=== PATIENT | male | born 1935 | race Caucasian/White ===

== ENCOUNTER 2017-09-27 11:19 | Emergency (ER) | payer MEDICARE ==
[~2017-09-27 11:19] MED LIST: Iopamidol 370 76% 100 ML VIAL ONE
[2017-09-27 12:07] LABS: Band 2 % (5-11); Eosinophils 1 % (0-10); Hemoglobin 14.4 g/dL (14.0-18.0); Lymphocytes 17 % (21-51); MDiff Complete? YES; Mean Corpuscular HGB CONC 32.3 g/dL (32.0-36.0); Mean Corpuscular Hemoglobin 29.7 pg (27.0-31.0); Mean Platelet Volume 8.7 fL (7.4-10.4); Monocytes 11 % (0-10); Neutrophil 67 % (42-75); PLT Morphology Comment Appears Adequate; Platelet Count 231 thou/uL (130-400); RBC Distribution Width 13.1 % (11.5-14.5); Reactive Lymphocytes 2 % (0-10); Red Blood Cell (RBC) Count 4.83 mill/uL (4.70-6.10); White Blood Cell (WBC) Count 8.8 thou/uL (4.8-10.8)
[2017-09-27 12:09] LABS: ALT (SGPT) Less than 6 U/L (8-55); AST (SGOT) 14 U/L (5-34); Albumin 3.7 g/dL (3.4-4.8); Alkaline Phosphatase 47 U/L (40-150); Anion Gap 13 mmol/L (10-20); BUN (Urea Nitrogen) 20 mg/dL (8.4-25.7); Bilirubin, Total 0.5 mg/dL (0.2-1.2); Calc. Creatinine Clearance 0 mL/min (70-130); Carbon Dioxide 25 mmol/L (23-31); Chloride 108 mmol/L (98-107); Estimated GFR-MDRD 72; Globulin 2.6 g/dL (2.4-3.5); Glucose 129 mg/dL (83-110); Potassium 4.4 mmol/L (3.5-5.1); Protein, Total 6.3 g/dL (5.8-8.1); Sodium 142 mmol/L (136-145)
[2017-09-27 12:10] LABS: CKMB 1.3 ng/mL (0-6.6); Troponin I Less than 0.010 ng/mL (< 0.028)
[2017-09-27 13:32] LABS: Bilirubin Negative (Negative); Blood, Urine Negative (Negative); Clarity Clear (Clear); Glucose, Urine (Dipstick) Negative (Negative); Leukocyte Negative (Negative); Nitrite Negative (Negative); Protein, Urine (Dipstick) Negative (Neg-Trace); Specific Gravity, Urine 1.015 (1.005-1.030); Urobilinogen 0.2 mg/dL (0.2-1.0)
--- NOTE | 2017-09-27 15:41 | RAD ---
CHEST ONE VIEW: 09/27/17 HISTORY: 82-year-old male with history of cough and generalized weakness, Parkinson's disease. COMPARISON: 01/28/17. FINDINGS: Mild cardiomegaly. Stable increased linear and interstitial markings bilaterally in the bases. No con fluent pneumonia, overt edema or pleural effusion. IMPRESSION: Stable chest. No evidence for pneumonia. POS: [facility]
--- NOTE | 2017-09-27 16:47 | CT ---
CONTRAST ENHANCED CTA CHEST 09/27/17 HISTORY: Uncontrolled movement, generalized weakness, shortness of breath. Contrast enhanced CTA of the chest is performed. 2D and 3D reconstructed images are used to evaluate the chest. Motion artifact decreases the sensitivity for detection of pathology. Hypodense areas seen in the kid neys bilaterally concerning for possible cysts. There is a right parasternal subcutaneous density most compatible with a sebaceous cyst. Atherosclerotic calcification of the aorta is seen. Coronary artery calcifications seen. The lung parenchyma demonstrates some scarring in both lung bases. There also appears to be some area of scarring in the lingula. There appears to be some thickening of the distal esophagus. This may represent esophagitis or possib le distal esophageal circumscribed mass. Correlate with direct visualization. Evaluation of the pulmonary arteries demonstrate no evidence of filling defects to suggest pulmonary emboli. Unremarkable mediastinum. IMPRESSION: 1. No evidence of pulmonary emboli. 2. Possible distal esophageal thickening. Correlate with direct visualization to rule out malign luis versus esophagitis. 3. No evidence of pulmonary emboli seen. POS: [facility]
== END 2017-09-27 14:12 | disposition home or self-care (01) ==
LOC: SCSER 11:19
DX: R53.83 Other fatigue (principal)
CPT/HCPCS: 71045; 71275; 80053; 81003; 82553; 84145; 84484; 85025; 85379; 87804; 93005

== ENCOUNTER 2017-12-19 16:20 | Inpatient (IN) | payer MEDICARE ==
[2017-12-19 16:49] LABS: #Basophils 0.1 thou/uL (0.0-0.2); #Eosinphils 0.2 thou/uL (0.0-0.7); #Lymphocytes 1.7 thou/uL (1.20-3.40); #Monocytes 0.8 thou/uL (0.11-0.59); #Neutrophils 5.5 thou/uL (1.40-6.50); %Lymphocytes 20.7 % (21.0-51.0); %Monocytes 9.4 % (0.0-10.0); %Neutrophils 66.9 % (42.0-75.0); Hemoglobin 15.9 g/dL (14.0-18.0); Mean Corpuscular HGB CONC 33.2 g/dL (32.0-36.0); Mean Corpuscular Volume 93.5 fl (80.0-94.0); Mean Platelet Volume 8.6 fL (7.4-10.4); Platelet Count 218 thou/uL (130-400); RBC Distribution Width 13.7 % (11.5-14.5); Red Blood Cell (RBC) Count 5.12 mill/uL (4.70-6.10); White Blood Cell (WBC) Count 8.2 thou/uL (4.8-10.8)
[2017-12-19 16:57] LABS: PTT 26.2 SEC (22.9-36.1); Prothrombin Time 13.2 SEC (12.0-14.7)
--- NOTE | 2017-12-19 17:03 | RAD ---
PORTABLE CHEST ONE VIEW: 12/19/17 at 4:59 p.m. HISTORY: Dyspnea. FINDINGS/IMPRESSION: Comparison is made with the exam of 09/27/17. The heart size is enlarged. The aorta is tortuous. No lobar consolidation, pneumothorax or pleural ef fusions are seen. There is a questionable nodular density in the left lower lung. Dedicated PA and la teral views of chest should be performed. CODE T CODE L POS: [facility]
[2017-12-19 17:07] LABS: ALT (SGPT) Less than 6 U/L (8-55); AST (SGOT) 13 U/L (5-34); Alkaline Phosphatase 51 U/L (40-150); Anion Gap 14 mmol/L (10-20); BUN (Urea Nitrogen) 22 mg/dL (8.4-25.7); Bilirubin, Total 0.4 mg/dL (0.2-1.2); CK (CPK) 45 U/L (30-200); Calc. Creatinine Clearance 0 mL/min (70-130); Calcium 9.3 mg/dL (7.8-10.44); Carbon Dioxide 24 mmol/L (23-31); Chloride 108 mmol/L (98-107); Estimated GFR-MDRD 69; Globulin 2.8 g/dL (2.4-3.5); Glucose 136 mg/dL (83-110); Lipase 21 U/L (8-78); Potassium 4.4 mmol/L (3.5-5.1); Protein, Total 6.8 g/dL (5.8-8.1); Sodium 142 mmol/L (136-145); Troponin I Less than 0.010 ng/mL (< 0.028)
[2017-12-19 19:59] VITALS: BMI 28.3
[2017-12-19 20:43] LABS: Troponin I Less than 0.010 ng/mL (< 0.028)
[2017-12-19] MEDS ORDERED: Acetaminophen 325 MG TAB PO PRN (21:14)
[2017-12-19 23:02] LABS: Troponin I Less than 0.010 ng/mL (< 0.028)
--- NOTE | 2017-12-20 04:17 | HP ---
CHIEF COMPLAINT: Generalized weakness. HISTORY OF PRESENT ILLNESS: The patient is a very pleasant 82-year-old male with a history of [place] son's and TIA who presents to the hospital with complaints of generalized weakness. The patient's wi fe is at the bedside states that the patient has been having generalized weakness for the past month or so; however, for the past 3 days, his weakness has gotten worse, especially today. The patient st ates that normally he is able to transfer from the bed to the chair; however, he has noticed shortnes s of breath which normally he does not get short of breath. The patient states that he has to wait a minute to catch his breath. The patient also states that upon transfer, he has been feeling little weak from his baseline. The patient's is at the bedside states that his appetite is really good and no recent change in medications. The patient denies any chest pain or palpitations, any nausea, vomiting, or diarrhea. PAST MEDICAL HISTORY: History of Parkinson's and TIA. SOCIAL HISTORY: The patient denies any drinking, drug use, or smoking history. PAST SURGICAL HISTORY: Tonsillectomy and a hernia repair. FAMILY HISTORY: Mother of leukemia. Father had diabetes. ALLERGIES: He has no known allergies. MEDICATIONS: His medications are as the following: He takes aspirin 81 mg daily, he takes Plavix 75 mg daily, he takes levothyroxine 112 mcg daily, Benicar 5 mg daily, carbidopa/levodopa 25/250 mg zakia ly, Colace 100 mg daily, Sinemet 25 mg 4 times a day. PHYSICAL EXAMINATION: VITAL SIGNS: Blood pressure of 164/79, pulse of 74, respirations 22, temperature is 98.7, 97% on carlos manuel m air. GENERAL: He is awake, alert, and oriented x3, does not appear in any distress, lying flat in bed. HEENT: Normocephalic, atraumatic. NECK: No lymphadenopathy noted. CARDIOVASCULAR: S1, S2 present. The patient's heart rate I believe is he has frequent PVCs. It see ms like every second beat. RESPIRATORY: Lungs are clear to auscultation, rhonchi, wheezes noted. EXTREMITIES: Lower extremity, no edema. Pedal pulses are present. NEUROLOGIC: He has good strength 5/5 in the upper extremities, 5/5 in lower extremities; however, ge neralized he is a little weaker than which is his baseline. SKIN: No lesions noted. PSYCHIATRIC: His mood and affect is little flat. REVIEW OF SYSTEMS: All review of systems negative except for the ones mentioned above in the HPI. LABORATORY DATA: Laboratory results are as the following: WBCs of 8.2, hemoglobin of 15.9, hematocr it of 47.9, platelets of 218. Chemistry: Sodium of 142, potassium of 4.4, BUN of 22, creatinine of 1.03. His troponins x2 were negative. BNP is 226.5. TSH is 3.6. EKG per my interpretation, I do s ee few P waves in his [place] beats, he does have a baseline due to his Parkinson's, it looks like he is in atrial fibrillation, but it seems that he does have some P waves with some frequent PVCs. Ches t x-ray: He did have a chest x-ray which indicated enlargement of the heart size and questionable no dular densities in the left lower lung. ASSESSMENT AND PLAN: The patient is a very pleasant 82-year-old male who presents to the hospital [facility] generalized weakness. 1. Generalized weakness secondary to either cardiac related versus worsening Parkinson's. The patie nt states that at baseline, he has been feeling very weak all over. The patient's stated that camilla ballesteros has seen Cardiology about a month ago and had echocardiogram at Dr. Schneider's office We will not re peat the echocardiogram. We will consult Cardiology. Currently, I am not sure if his EKG indicates atrial fibrillation since he does have some P waves on some of his [place] beats and does have some pr emature ventricular contractions. We will wait for cardiology's evaluation. We will also check a vi tamin D and a vitamin B12 level. His thyroid level has been okay. His troponins x2 were negative. 2. History of transient ischemic attack. The patient is on aspirin and Plavix. We will continue. He is also on a statin, we will also continue that. 3. History of Parkinson's. We will continue his home medication. 4. We will also get physical therapy and occupational therapy to evaluate the patient. 5. Deep venous thrombosis prophylaxis. We will put the patient on subcu heparin.
[2017-12-20 04:59] LABS: #Eosinphils 0.3 thou/uL (0.0-0.7); #Lymphocytes 1.4 thou/uL (1.20-3.40); #Monocytes 0.8 thou/uL (0.11-0.59); #Neutrophils 4.8 thou/uL (1.40-6.50); %Basophils 0.5 % (0.0-1.0); %Eosinophils 3.7 % (0.0-10.0); %Lymphocytes 19.1 % (21.0-51.0); %Monocytes 11.1 % (0.0-10.0); %Neutrophils 65.5 % (42.0-75.0); Hemoglobin 14.3 g/dL (14.0-18.0); Mean Corpuscular HGB CONC 32.6 g/dL (32.0-36.0); Mean Corpuscular Hemoglobin 30.9 pg (27.0-31.0); Mean Corpuscular Volume 94.8 fl (80.0-94.0); Mean Platelet Volume 7.7 fL (7.4-10.4); Platelet Count 204 thou/uL (130-400); RBC Distribution Width 13.6 % (11.5-14.5); Red Blood Cell (RBC) Count 4.63 mill/uL (4.70-6.10); White Blood Cell (WBC) Count 7.3 thou/uL (4.8-10.8)
[2017-12-20 05:18] LABS: Anion Gap 11 mmol/L (10-20); BUN (Urea Nitrogen) 18 mg/dL (8.4-25.7); Calc. Creatinine Clearance 91 mL/min (70-130); Calcium 8.6 mg/dL (7.8-10.44); Carbon Dioxide 25 mmol/L (23-31); Chloride 107 mmol/L (98-107); Estimated GFR-MDRD 87; Glucose 97 mg/dL (83-110); Sodium 139 mmol/L (136-145)
[2017-12-20] MEDS ORDERED: Mag-Al 1200 mg/1200 mg/30 ML UDCUP PO PRN (06:53)
[2017-12-20] MEDS ORDERED: Artificial Tears 18 DROP/0.9 ML EA EYE PRN (06:53)
[2017-12-20] MEDS ORDERED: Milk Of Magnesia 30 ML UDCUP PO PRN (06:53)
[2017-12-20] MEDS ORDERED: Ondansetron HCl/PF 4 MG/2 ML Vial IVP PRN (06:53)
[2017-12-20] MEDS ORDERED: Sodium Chloride 0.65% Nasal 44 ML BOT EA NARE PRN (06:53)
[2017-12-20] MEDS ORDERED: Temazepam 15 MG CAP PO PRN (06:53)
[2017-12-20] MEDS ORDERED: Loratadine 10 MG TAB PO PRN (06:53)
[2017-12-20] MEDS ORDERED: Chloraseptic Spray 180 ml Bottle PO PRN (06:53)
[2017-12-20] MEDS ORDERED: hydrALAZINE 20 MG/ML VIAL SLOW IVP PRN (06:53)
[2017-12-20] MEDS ORDERED: Nitroglycerin 0.4 MG TAB (25 Tab Bottle) SL PRN (06:53)
[2017-12-20] MEDS ORDERED: HYDROcodone/Acetaminophen 5/325 mg Tablet PO PRN (06:53)
[2017-12-20] MEDS ORDERED: Eucerin (Mineral Oil/Petrolatum,White) 30 gm Jar TOP PRN (06:53)
[2017-12-20] MEDS ORDERED: Ondansetron ODT 4 MG TAB PO PRN (06:53)
[2017-12-20] MEDS ORDERED: Diabetic Tussin 200 MG/10 ML UDCUP PO PRN (06:53)
[2017-12-20] MEDS ORDERED: Loperamide HCl 2 MG CAP PO PRN (06:53)
[2017-12-20] MEDS ORDERED: CYANOCOBALAMIN PO SCH (07:00)
[2017-12-20] MEDS ORDERED: Non-Formulary Item 1 EACH (Cholecalciferol (Vitamin D3) [Vitamin D3] 5,000 UNIT) PO SCH (09:00)
[2017-12-20] MEDS ORDERED: Prevnar 13-Val Conj/PF 0.5 ML SYRINGE IM ONE (09:00)
[2017-12-20] MEDS: Aspirin 81 mg Enteric Coated Tablet PO SCH (09:00)
[2017-12-20] MEDS ORDERED: Docusate 100 MG CAP PO SCH (09:00)
[2017-12-20] MEDS ORDERED: Aspirin 81 mg Enteric Coated Tablet PO SCH (09:00)
[2017-12-20] MEDS ORDERED: Enoxaparin Sodium 40 MG/0.4 ML SYRINGE SC SCH (09:00)
[2017-12-20] MEDS ORDERED: Non-Formulary Item 1 EACH (Ezetimibe/Simvastatin [Ezetimibe-Simvastatin 10-40 Mg] 1 TAB) PO SCH (09:00)
[2017-12-20] MEDS: Docusate 100 MG CAP PO SCH ×2 (09:00→20:47)
--- NOTE | 2017-12-20 09:10 | PDOC.PN ---
- Subjective Encounter Start Date: 12/20/17 Encounter Start Time: 07:00 -: old records requested/rev pt feels weak, no chest pain, no dizziness, no dyspnea Patient seen and examined for weakness. No new complaints. No overnight events - Objective Resuscitation Status: Resuscitation Status FULL:Full Resuscitation MAR Reviewed: Yes Vital Signs & Weight: Vital Signs (12 hours) Temp Pulse Resp BP Pulse Ox 12/20/17 07:10 97.9 F 61 16 136/80 97 12/20/17 03:00 97.7 F 60 24 H 160/80 H 96 12/19/17 23:18 98.2 F 58 L 24 H 181/86 H 99 Weight Weight 209 lb Result Diagrams: 12/20/17 04:36 12/20/17 04:36 Radiology Reviewed by me: Yes EKG Reviewed by me: Yes (pac, pvc) Phys Exam - Physical Examination Constitutional: NAD HEENT: PERRLA, moist MMs, sclera anicteric Neck: no JVD, supple Respiratory: no wheezing, no rales, no rhonchi Cardiovascular: no significant murmur, irregular Gastrointestinal: soft, non-tender, no distention, positive bowel sounds Musculoskeletal: no edema, pulses present Neurological: non-focal, normal sensation, moves all 4 limbs Lymphatic: no nodes Psychiatric: normal affect, A&O x 3 Skin: no rash, normal turgor Dx/Plan (1) Frequent PVCs Code(s): I49.3 - VENTRICULAR PREMATURE DEPOLARIZATION Status: Acute (2) Weakness generalized Code(s): R53.1 - WEAKNESS Status: Acute (3) Hypertension Code(s): I10 - ESSENTIAL (PRIMARY) HYPERTENSION Status: Chronic (4) Hypothyroidism Code(s): E03.9 - HYPOTHYROIDISM, UNSPECIFIED Status: Chronic (5) Parkinson disease Code(s): G20 - PARKINSON'S DISEASE Status: Chronic - Plan cont current plan of care, plan discussed w/ family, PT/OT * tele does not show and ekg does not support afib, seems like he has many pac, pvc * echo will be repeated again, he had recently echo at dr salmeron's office * may need stress test to rule out silent ischemia, but will defer to cardiology * discussed with pt and * home medication reconciled * medication reviewed as below * symptomatic treatment. Review of Systems - Review of Systems Constitutional: weakness. negative: fever, chills, sweats, malaise, other Eyes: negative: Pain, Vision Change, Conjunctivae Inflammation, Eyelid Inflammation, Redness, Other ENT: negative: Ear Pain, Ear Discharge, Nose Pain, Nose Discharge, Nose Congestion, Mouth Pain, Mouth Swelling, Throat Pain, Throat Swelling, Other Respiratory: negative: Cough, Dry, Shortness of Breath, Hemoptysis, SOB with Excertion, Pleuritic Pain, Sputum, Wheezing Cardiovascular: negative: chest pain, palpitations, orthopnea, paroxysmal nocturnal dyspnea, edema, light headedness, other Gastrointestinal: negative: Nausea, Vomiting, Abdominal Pain, Diarrhea, Constipation, Melena, Hematochezia, Other Genitourinary: negative: Dysuria, Frequency, Incontinence, Hematuria, Retention , Other Musculoskeletal: negative: Neck Pain, Shoulder Pain, Arm Pain, Back Pain, Hand Pain, Leg Pain, Foot Pain, Other Skin: negative: Rash, Lesions, Christian, Bruising, Other - Medications/Allergies Allergies/Adverse Reactions: Allergies Allergy/AdvReac Type Severity Reaction Status Date / Time No Known Allergies Allergy Verified 12/19/17 22:32 Medications: Current Medications Acetaminophen (Tylenol) 650 mg PO Q4H PRN PRN Reason: Headache/Fever or Pain Hydrocodone Bitart/Acetaminophen ([place] 5/325) 1 tab PO Q4H PRN PRN Reason: Moderate Pain (4-6) Al Hydroxide/Mg Hydroxide (Maalox) 15 ml PO Q4H PRN PRN Reason: Heartburn or Indigestion Artificial Tears (Tears Naturale) 0 drop EA EYE PRN PRN PRN Reason: Dry Eyes Aspirin (Aspirin Chewable) 81 mg PO DAILY [facility] Aspirin (Ecotrin) 81 mg PO DAILY [facility] Carbidopa/Levodopa (Sinemet 25-250) 2 tab PO QID [facility] Carbidopa/Levodopa (Sinemet Cr 50/200) 1 tab PO HS [facility] Cholecalciferol (Vitamin D3) 5,000 units PO DAILY [facility] Clopidogrel Bisulfate (Plavix) 75 mg PO DAILY [facility] Cyanocobalamin (Vitamin B-12) 1,000 mcg PO Q2D [facility] Docusate Sodium (Colace) 100 mg PO BID [facility] Docusate Sodium (Colace) 100 mg PO BID [facility] Ezetimibe (Zetia) 10 mg PO HS [facility] Enoxaparin Sodium (Lovenox) 40 mg SC 0900 [place] Entacapone (Comtan) 200 mg PO QID [place] Famotidine (Pepcid) 20 mg PO BID [place] Guaifenesin (Robitussin Sf) 200 mg PO Q4H PRN PRN Reason: Cough Hydralazine HCl (Apresoline) 10 mg SLOW IVP Q4H PRN PRN Reason: Systolic BP > 180 Levothyroxine Sodium (Synthroid) 112 mcg PO DAILY [place] Loperamide HCl (Imodium) 2 mg PO PRN PRN PRN Reason: Diarrhea/Loose Stools Loratadine (Claritin) 10 mg PO DAILYPRN PRN PRN Reason: Sinus Symptoms Magnesium Hydroxide (Milk Of Magnesium) 30 ml PO DAILYPRN PRN PRN Reason: Constipation Mineral Oil/White Petrolatum (Eucerin Cream) 0 gm TOP BIDPRN PRN PRN Reason: Dry Skin Nitroglycerin (Nitrostat) 0.4 mg SL Q5MIN PRN PRN Reason: Chest Pain Ondansetron HCl (Zofran Odt) 4 mg PO Q6H PRN PRN Reason: Nausea/Vomiting Ondansetron HCl (Zofran) 4 mg IVP Q6H PRN PRN Reason: Nausea/Vomiting Phenol (Chloraseptic [place] 180 Ml Bot) 0 ml PO PRN PRN PRN Reason: Sore Throat Senna/Docusate Sodium (Senokot S) 2 tab PO HS PRN PRN Reason: Constipation Simvastatin (Zocor) 40 mg PO HS [place] Sodium Chloride ([place] Nasal [place] 0.65%) 0 ml EA NARE QIDPRN PRN PRN Reason: Nasal Congestion Sodium Chloride (Flush - Normal Saline) 10 ml IVF Q12HR [place] Sodium Chloride (Flush - Normal Saline) 10 ml IVF PRN PRN PRN Reason: Saline Flush Temazepam (Restoril) 15 mg PO HSPRN PRN PRN Reason: Insomnia
[2017-12-20] MEDS: Carbidopa/Levodopa 25-250 mg Tablet PO SCH ×4 (09:16→20:36)
[2017-12-20] MEDS: Entacapone 200 mg Tablet PO SCH ×4 (09:18→22:23)
[2017-12-20] MEDS: Levothyroxine Sodium 112 MCG TAB PO SCH (09:18)
[2017-12-20] MEDS: Clopidogrel Bisulfate 75 MG TAB PO SCH (09:22)
[2017-12-20] MEDS: Famotidine 20 MG TAB PO SCH ×2 (09:22→20:36)
[2017-12-20] MEDS: Cyanocobalamin (Vitamin B-12) 1,000 MCG TAB PO SCH (09:33)
--- NOTE | 2017-12-20 15:07 | CT ---
CT ARTERIOGRAM CHEST WITH IV CONTRAST AND 3D MIP IMAGING: HISTORY: Chest pain. Dyspnea. FINDINGS: Small filling defects are apparent within left upper lobe pulmonary arteries and left lower lobe pulm onary arteries with peripheral atelectasis at the left lung base. A single filling defect is present within a right upper lobe pulmonary artery. No pleural fluid, pneumothorax, or mediastinal hematoma . Skin lesions are evident at the anterior chest wall. There is calcification in the arterial struc tures. IMPRESSION: 1. Pulmonary emboli, bilateral. Overall low clot burden. 2. Atherosclerosis. Findings were called to Dr. Ku at 1456 hours. CODE CR POS: [facility]
--- NOTE | 2017-12-20 15:10 | CON ---
DATE OF CONSULTATION: 12/20/2017 HISTORY OF PRESENT ILLNESS: The patient is an 82-year-old gentleman who presents with dyspnea and weakness. The patient has a history of Parkinson's disease. He recently saw Dr. Rodríguez and underwent cardiac evaluation including echocardiogram, which was apparently unremarkable. The patient has noticed increasing dyspnea with minimal exertion. He denies having any chest discomfort. The patient denies have any PND or orthopnea. The patient was noted to be in irregular heart rhythm and admitted for further evaluation. PAST MEDICAL HISTORY: Parkinson's disease. History of a TIA PAST SURGICAL HISTORY: Tonsillectomy, hernia surgery. SOCIAL HISTORY: Nonsmoker. FAMILY HISTORY: No strong family heart disease. MEDICATIONS: Aspirin 81 daily, Plavix 75 daily, Colace 100 daily, Sinemet 25 mg 4 tablets daily, Benicar 5 daily, Synthroid 112 mcg daily. REVIEW OF SYSTEMS: Ten point system noticing for marked increasing weakness. ALLERGIES: No known drug allergies. PHYSICAL EXAMINATION: GENERAL: Obese gentleman in no acute distress. VITAL SIGNS: Blood pressure was 131/77. NECK: Showed no jugular venous distention. LUNGS: Clear to auscultation. HEART: Irregular rate and rhythm, normal S1, S2. ABDOMEN: Distended. EXTREMITIES: Showed trace edema. SKIN: Warm and dry. VASCULAR: Radial pulses are 2+. LABORATORY DATA: White blood cell count 7.3, hemoglobin 14.3, hematocrit 43.9, platelets are 204. Sodium 139, potassium 4.0, chloride 107, bicarbonate 25, BUN 18, creatinine is 0.84. Troponin was less than 0.01. BNP is 206. His EKG revealed normal sinus rhythm with frequent PACs and fusion complexes. IMPRESSION: 1. Dyspnea. 2. Premature atrial contractions. 3. Parkinson disease. 4. Dyslipidemia. 5. History of transient ischemic attack. 6. Obesity. PLAN: This gentleman presents with increasing dyspnea. The patient had a recent echocardiogram which was unremarkable.I will obtain a D-dimer and possible CT scan to make sure there is no evidence of pulmonary embolus. We will also obtain a stress test to make sure there is no evidence and that his dyspnea secondary to silent ischemia. We will follow this patient with you through his hospitalization. MINNA
[2017-12-20] MEDS ORDERED: Enoxaparin Sodium 100 MG/ML SYRINGE SC SCH ×2 (15:30→21:00)
[2017-12-20] MEDS ORDERED: ISOVUE-370 76%-LOCM 1 ML ONE (16:39)
--- NOTE | 2017-12-20 17:21 | ULT ---
ULTRASOUND BILATERAL LOWER EXTREMITY VENOUS DOPPLER 12/20/17 HISTORY: PE. Elevated D-dimer. COMPARISON: None. TECHNIQUE: Real time franks scale, color doppler with spectral analysis bilateral lower extremity venous system wa s performed. The common femoral, femoral, proximal portion of the greater saphenous, deep femoral vei ns as well as popliteal and posterior tibial veins are interrogated. Normal flow, augmentation and compression. IMPRESSION: No deep venous thrombosis. POS: [facility]
[2017-12-20] MEDS: Senokot S 8.6-50 MG TAB PO PRN (20:35)
[2017-12-20] MEDS: Ezetimibe 10 MG TAB PO SCH (20:35)
[2017-12-20] MEDS: Carbidopa/Levodopa CR 50-200 mg Tablet PO SCH (20:36)
[2017-12-20] MEDS: Simvastatin 40 MG TAB PO SCH (20:36)
[2017-12-21 05:11] LABS: #Eosinphils 0.2 thou/uL (0.0-0.7); #Lymphocytes 1.4 thou/uL (1.20-3.40); #Monocytes 0.9 thou/uL (0.11-0.59); #Neutrophils 4.5 thou/uL (1.40-6.50); %Basophils 0.4 % (0.0-1.0); %Eosinophils 2.8 % (0.0-10.0); %Neutrophils 63.9 % (42.0-75.0); Mean Corpuscular HGB CONC 33.5 g/dL (32.0-36.0); Mean Corpuscular Hemoglobin 32.1 pg (27.0-31.0); Mean Corpuscular Volume 95.8 fl (80.0-94.0); Mean Platelet Volume 7.6 fL (7.4-10.4); Platelet Count 197 thou/uL (130-400); RBC Distribution Width 13.6 % (11.5-14.5); Red Blood Cell (RBC) Count 4.36 mill/uL (4.70-6.10); White Blood Cell (WBC) Count 7.1 thou/uL (4.8-10.8)
[2017-12-21 05:17] LABS: INR-International Normal Ratio 1.1; Prothrombin Time 13.9 SEC (12.0-14.7)
[2017-12-21 05:18] LABS: D-Dimer Test 0.8 *mcg/mL (0.27-0.43)
[2017-12-21 05:28] LABS: Anion Gap 11 mmol/L (10-20); BUN (Urea Nitrogen) 21 mg/dL (8.4-25.7); Calc. Creatinine Clearance 71 mL/min (70-130); Calcium 8.8 mg/dL (7.8-10.44); Carbon Dioxide 26 mmol/L (23-31); Chloride 106 mmol/L (98-107); Estimated GFR-MDRD 66; Glucose 95 mg/dL (83-110); Potassium 4.2 mmol/L (3.5-5.1); Sodium 139 mmol/L (136-145)
--- NOTE | 2017-12-21 08:17 | PDOC.PN ---
- Subjective Encounter Start Date: 12/21/17 Encounter Start Time: 06:30 pt is doing well, has less dyspnea, no bleeding from any site, no chest pain, no dizziness Patient seen and examined for PE. No new complaints. No overnight events - Objective Resuscitation Status: Resuscitation Status FULL:Full Resuscitation MAR Reviewed: Yes Vital Signs & Weight: Vital Signs (12 hours) Temp Pulse Resp BP Pulse Ox 12/21/17 03:05 97.7 F 62 20 125/69 95 12/20/17 23:25 98.2 F 53 L 20 137/74 95 Weight Weight 209 lb I&O: 12/20/17 12/21/17 12/22/17 06:59 06:59 06:59 Output Total 150 Balance -150 Result Diagrams: 12/21/17 04:50 12/21/17 04:50 Radiology Reviewed by me: Yes (CTA-bl PE, US leg- No DVT) EKG Reviewed by me: Yes (PVCs) Phys Exam - Physical Examination Constitutional: NAD HEENT: PERRLA, moist MMs, sclera anicteric Neck: no JVD, supple Respiratory: no wheezing, no rales, no rhonchi Cardiovascular: RRR, no significant murmur, no rub Gastrointestinal: soft, non-tender, no distention, positive bowel sounds Musculoskeletal: no edema, pulses present Neurological: non-focal, normal sensation, moves all 4 limbs Psychiatric: normal affect, A&O x 3 Skin: no rash, normal turgor Dx/Plan (1) Pulmonary embolism, bilateral Code(s): I26.99 - OTHER PULMONARY EMBOLISM WITHOUT ACUTE COR PULMONALE Status : Acute (2) Frequent PVCs Code(s): I49.3 - VENTRICULAR PREMATURE DEPOLARIZATION Status: Acute (3) Weakness generalized Code(s): R53.1 - WEAKNESS Status: Acute (4) Hypertension Code(s): I10 - ESSENTIAL (PRIMARY) HYPERTENSION Status: Chronic (5) Hypothyroidism Code(s): E03.9 - HYPOTHYROIDISM, UNSPECIFIED Status: Chronic (6) Parkinson disease Code(s): G20 - PARKINSON'S DISEASE Status: Chronic - Plan cont current plan of care, PT/OT * continue lovenox for now * on discharge elliquis vs xarelto vs warfarin * today echo * start PT * medication reviewed as below * symptomatic treatment. Review of Systems - Review of Systems Eyes: negative: Pain, Vision Change, Conjunctivae Inflammation, Eyelid Inflammation, Redness, Other ENT: negative: Ear Pain, Ear Discharge, Nose Pain, Nose Discharge, Nose Congestion, Mouth Pain, Mouth Swelling, Throat Pain, Throat Swelling, Other Respiratory: negative: Cough, Dry, Shortness of Breath, Hemoptysis, SOB with Excertion, Pleuritic Pain, Sputum, Wheezing Cardiovascular: negative: chest pain, palpitations, orthopnea, paroxysmal nocturnal dyspnea, edema, light headedness, other Gastrointestinal: negative: Nausea, Vomiting, Abdominal Pain, Diarrhea, Constipation, Melena, Hematochezia, Other Genitourinary: negative: Dysuria, Frequency, Incontinence, Hematuria, Retention , Other Musculoskeletal: negative: Neck Pain, Shoulder Pain, Arm Pain, Back Pain, Hand Pain, Leg Pain, Foot Pain, Other Skin: negative: Rash, Lesions, Christian, Bruising, Other - Medications/Allergies Allergies/Adverse Reactions: Allergies Allergy/AdvReac Type Severity Reaction Status Date / Time No Known Allergies Allergy Verified 12/19/17 22:32 Medications: Current Medications Acetaminophen (Tylenol) 650 mg PO Q4H PRN PRN Reason: Headache/Fever or Pain Hydrocodone Bitart/Acetaminophen ([place] 5/325) 1 tab PO Q4H PRN PRN Reason: Moderate Pain (4-6) Al Hydroxide/Mg Hydroxide (Maalox) 15 ml PO Q4H PRN PRN Reason: Heartburn or Indigestion Artificial Tears (Tears Naturale) 0 drop EA EYE PRN PRN PRN Reason: Dry Eyes Aspirin (Ecotrin) 81 mg PO DAILY [facility] Last Admin: 12/20/17 09:00 Dose: Not Given Carbidopa/Levodopa (Sinemet 25-250) 2 tab PO QID [facility] Last Admin: 12/20/17 20:36 Dose: 2 tab Carbidopa/Levodopa (Sinemet Cr 50/200) 1 tab PO HS [facility] Last Admin: 12/20/17 20:36 Dose: 1 tab Cholecalciferol (Vitamin D3) 5,000 units PO DAILY [facility] Last Admin: 12/20/17 09:16 Dose: 5,000 units Clopidogrel Bisulfate (Plavix) 75 mg PO DAILY [facility] Last Admin: 12/20/17 09:22 Dose: 75 mg Cyanocobalamin (Vitamin B-12) 1,000 mcg PO Q2D [facility] Last Admin: 12/20/17 09:33 Dose: 1,000 mcg Docusate Sodium (Colace) 100 mg PO BID [facility] Last Admin: 12/20/17 20:47 Dose: Not Given Ezetimibe (Zetia) 10 mg PO HS [facility] Last Admin: 12/20/17 20:35 Dose: 10 mg Enoxaparin Sodium (Lovenox) 90 mg SC 09,2099 [facility] Entacapone (Comtan) 200 mg PO QID [facility] Last Admin: 12/20/17 22:23 Dose: 200 mg Famotidine (Pepcid) 20 mg PO BID [facility] Last Admin: 12/20/17 20:36 Dose: 20 mg Guaifenesin (Robitussin Sf) 200 mg PO Q4H PRN PRN Reason: Cough Hydralazine HCl (Apresoline) 10 mg SLOW IVP Q4H PRN PRN Reason: Systolic BP > 180 Levothyroxine Sodium (Synthroid) 112 mcg PO DAILY [facility] Last Admin: 12/20/17 09:18 Dose: 112 mcg Loperamide HCl (Imodium) 2 mg PO PRN PRN PRN Reason: Diarrhea/Loose Stools Loratadine (Claritin) 10 mg PO DAILYPRN PRN PRN Reason: Sinus Symptoms Magnesium Hydroxide (Milk Of Magnesium) 30 ml PO DAILYPRN PRN PRN Reason: Constipation Mineral Oil/White Petrolatum (Eucerin Cream) 0 gm TOP BIDPRN PRN PRN Reason: Dry Skin Nitroglycerin (Nitrostat) 0.4 mg SL Q5MIN PRN PRN Reason: Chest Pain Ondansetron HCl (Zofran Odt) 4 mg PO Q6H PRN PRN Reason: Nausea/Vomiting Ondansetron HCl (Zofran) 4 mg IVP Q6H PRN PRN Reason: Nausea/Vomiting Phenol (Chloraseptic [place] 180 Ml Bot) 0 ml PO PRN PRN PRN Reason: Sore Throat Senna/Docusate Sodium (Senokot S) 2 tab PO HS PRN PRN Reason: Constipation Last Admin: 12/20/17 20:35 Dose: 2 tab Simvastatin (Zocor) 40 mg PO [facility] Last Admin: 12/20/17 20:36 Dose: 40 mg Sodium Chloride ([place] Nasal [place] 0.65%) 0 ml EA NARE QIDPRN PRN PRN Reason: Nasal Congestion Sodium Chloride (Flush - Normal Saline) 10 ml IVF Q12HR [place] Last Admin: 12/20/17 20:37 Dose: 10 ml Sodium Chloride (Flush - Normal Saline) 10 ml IVF PRN PRN PRN Reason: Saline Flush Temazepam (Restoril) 15 mg PO HSPRN PRN PRN Reason: Insomnia
[2017-12-21] MEDS: Enoxaparin Sodium 100 MG/ML SYRINGE SC SCH ×2 (09:03→20:11)
[2017-12-21] MEDS: Carbidopa/Levodopa 25-250 mg Tablet PO SCH ×4 (09:04→20:13)
[2017-12-21] MEDS: Docusate 100 MG CAP PO SCH ×2 (09:04→20:13)
[2017-12-21] MEDS: Levothyroxine Sodium 112 MCG TAB PO SCH (09:04)
[2017-12-21] MEDS: Entacapone 200 mg Tablet PO SCH ×4 (09:05→20:13)
[2017-12-21] MEDS: Clopidogrel Bisulfate 75 MG TAB PO SCH (09:05)
[2017-12-21] MEDS: Famotidine 20 MG TAB PO SCH ×2 (09:05→20:12)
[2017-12-21] MEDS: Aspirin 81 mg Enteric Coated Tablet PO SCH (09:05)
[2017-12-21] MEDS: Senokot S 8.6-50 MG TAB PO PRN (20:13)
[2017-12-21] MEDS: Ezetimibe 10 MG TAB PO SCH (20:13)
[2017-12-21] MEDS: Simvastatin 40 MG TAB PO SCH (20:13)
[2017-12-21] MEDS: Carbidopa/Levodopa CR 50-200 mg Tablet PO SCH (20:14)
[2017-12-22 05:07] LABS: INR-International Normal Ratio 1.1; Prothrombin Time 13.9 SEC (12.0-14.7)
[2017-12-22 05:10] LABS: Hemoglobin 13.7 g/dL (14.0-18.0); Platelet Count 203 thou/uL (130-400)
[2017-12-22] MEDS: Levothyroxine Sodium 112 MCG TAB PO SCH (08:14)
[2017-12-22] MEDS: Carbidopa/Levodopa 25-250 mg Tablet PO SCH ×4 (08:15→21:54)
[2017-12-22] MEDS: Famotidine 20 MG TAB PO SCH ×2 (08:16→21:54)
[2017-12-22] MEDS: Docusate 100 MG CAP PO SCH ×2 (08:16→21:55)
[2017-12-22] MEDS: Entacapone 200 mg Tablet PO SCH ×4 (08:16→21:54)
[2017-12-22] MEDS: Aspirin 81 mg Enteric Coated Tablet PO SCH (08:16)
[2017-12-22] MEDS: Enoxaparin Sodium 100 MG/ML SYRINGE SC SCH ×2 (08:16→21:55)
[2017-12-22] MEDS: Cyanocobalamin (Vitamin B-12) 1,000 MCG TAB PO SCH (10:09)
--- NOTE | 2017-12-22 10:15 | PDOC.PN ---
- Subjective Encounter Start Date: 12/22/17 Encounter Start Time: 07:00 Patient seen and examined for pulmonary embolism. No new complaints. No overnight events - Objective Resuscitation Status: Resuscitation Status FULL:Full Resuscitation MAR Reviewed: Yes Vital Signs & Weight: Vital Signs (12 hours) Temp Pulse Resp BP Pulse Ox 12/22/17 08:00 98.0 F 55 L 16 158/70 H 92 L 12/22/17 04:00 98.1 F 61 18 119/67 93 L 12/22/17 00:00 98.7 F 64 18 128/69 93 L Weight Weight 209 lb I&O: 12/21/17 12/22/17 12/23/17 06:59 06:59 06:59 Intake Total 1400 Output Total 150 150 Balance -150 1250 Result Diagrams: 12/22/17 04:28 12/22/17 04:28 EKG Reviewed by me: Yes (pvcs) Phys Exam - Physical Examination Constitutional: NAD HEENT: PERRLA, moist MMs, sclera anicteric Neck: no JVD, supple Respiratory: no wheezing, no rales, no rhonchi Cardiovascular: RRR, no significant murmur, no rub Gastrointestinal: soft, non-tender, no distention, positive bowel sounds Musculoskeletal: no edema, pulses present Neurological: non-focal, normal sensation, moves all 4 limbs Lymphatic: no nodes Psychiatric: normal affect, A&O x 3 Skin: no rash, normal turgor Dx/Plan (1) Frequent PVCs Code(s): I49.3 - VENTRICULAR PREMATURE DEPOLARIZATION Status: Acute (2) Weakness generalized Code(s): R53.1 - WEAKNESS Status: Acute (3) Hypertension Code(s): I10 - ESSENTIAL (PRIMARY) HYPERTENSION Status: Chronic (4) Hypothyroidism Code(s): E03.9 - HYPOTHYROIDISM, UNSPECIFIED Status: Chronic (5) Parkinson disease Code(s): G20 - PARKINSON'S DISEASE Status: Chronic - Plan cont current plan of care, plan discussed w/ family, PT/OT * pt's and pt agreed with marianna on discharge * medication reviewed as below * symptomatic treatment * discussed with * continue lovenox * continue PT * will plan for discharge tomorrow to home * pt and does not want snu or rehab. Review of Systems - Review of Systems Eyes: negative: Pain, Vision Change, Conjunctivae Inflammation, Eyelid Inflammation, Redness, Other ENT: negative: Ear Pain, Ear Discharge, Nose Pain, Nose Discharge, Nose Congestion, Mouth Pain, Mouth Swelling, Throat Pain, Throat Swelling, Other Respiratory: negative: Cough, Dry, Shortness of Breath, Hemoptysis, SOB with Excertion, Pleuritic Pain, Sputum, Wheezing Cardiovascular: negative: chest pain, palpitations, orthopnea, paroxysmal nocturnal dyspnea, edema, light headedness, other Gastrointestinal: negative: Nausea, Vomiting, Abdominal Pain, Diarrhea, Constipation, Melena, Hematochezia, Other Genitourinary: negative: Dysuria, Frequency, Incontinence, Hematuria, Retention , Other Musculoskeletal: negative: Neck Pain, Shoulder Pain, Arm Pain, Back Pain, Hand Pain, Leg Pain, Foot Pain, Other Skin: negative: Rash, Lesions, Christian, Bruising, Other - Medications/Allergies Allergies/Adverse Reactions: Allergies Allergy/AdvReac Type Severity Reaction Status Date / Time No Known Allergies Allergy Verified 12/19/17 22:32 Medications: Current Medications Acetaminophen (Tylenol) 650 mg PO Q4H PRN PRN Reason: Headache/Fever or Pain Hydrocodone Bitart/Acetaminophen ([place] 5/325) 1 tab PO Q4H PRN PRN Reason: Moderate Pain (4-6) Al Hydroxide/Mg Hydroxide (Maalox) 15 ml PO Q4H PRN PRN Reason: Heartburn or Indigestion Artificial Tears (Tears Naturale) 0 drop EA EYE PRN PRN PRN Reason: Dry Eyes Aspirin (Ecotrin) 81 mg PO DAILY [facility] Last Admin: 12/22/17 08:16 Dose: 81 mg Carbidopa/Levodopa (Sinemet 25-250) 2 tab PO QID [facility] Last Admin: 12/22/17 08:15 Dose: 2 tab Carbidopa/Levodopa (Sinemet Cr 50/200) 1 tab PO HS [facility] Last Admin: 12/21/17 20:14 Dose: 1 tab Cholecalciferol (Vitamin D3) 5,000 units PO DAILY [facility] Last Admin: 12/22/17 08:15 Dose: 5,000 units Cyanocobalamin (Vitamin B-12) 1,000 mcg PO Q2D [facility] Last Admin: 12/22/17 10:09 Dose: 1,000 mcg Docusate Sodium (Colace) 100 mg PO BID [facility] Last Admin: 12/22/17 08:16 Dose: 100 mg Ezetimibe (Zetia) 10 mg PO HS [facility] Last Admin: 12/21/17 20:13 Dose: 10 mg Enoxaparin Sodium (Lovenox) 90 mg SC 0900,2100 [facility] Last Admin: 12/22/17 08:16 Dose: 90 mg Entacapone (Comtan) 200 mg PO QID [facility] Last Admin: 12/22/17 08:16 Dose: 200 mg Famotidine (Pepcid) 20 mg PO BID [facility] Last Admin: 12/22/17 08:16 Dose: 20 mg Guaifenesin (Robitussin Sf) 200 mg PO Q4H PRN PRN Reason: Cough Hydralazine HCl (Apresoline) 10 mg SLOW IVP Q4H PRN PRN Reason: Systolic BP > 180 Levothyroxine Sodium (Synthroid) 112 mcg PO DAILY [facility] Last Admin: 12/22/17 08:14 Dose: 112 mcg Loperamide HCl (Imodium) 2 mg PO PRN PRN PRN Reason: Diarrhea/Loose Stools Loratadine (Claritin) 10 mg PO DAILYPRN PRN PRN Reason: Sinus Symptoms Magnesium Hydroxide (Milk Of Magnesium) 30 ml PO DAILYPRN PRN PRN Reason: Constipation Mineral Oil/White Petrolatum (Eucerin Cream) 0 gm TOP BIDPRN PRN PRN Reason: Dry Skin Nitroglycerin (Nitrostat) 0.4 mg SL Q5MIN PRN PRN Reason: Chest Pain Ondansetron HCl (Zofran Odt) 4 mg PO Q6H PRN PRN Reason: Nausea/Vomiting Ondansetron HCl (Zofran) 4 mg IVP Q6H PRN PRN Reason: Nausea/Vomiting Phenol (Chloraseptic [place] 180 Ml Bot) 0 ml PO PRN PRN PRN Reason: Sore Throat Senna/Docusate Sodium (Senokot S) 2 tab PO HS PRN PRN Reason: Constipation Last Admin: 12/21/17 20:13 Dose: 2 tab Simvastatin (Zocor) 40 mg PO HS [facility] Last Admin: 12/21/17 20:13 Dose: 40 mg Sodium Chloride ([place] Nasal [place] 0.65%) 0 ml EA NARE QIDPRN PRN PRN Reason: Nasal Congestion Sodium Chloride (Flush - Normal Saline) 10 ml IVF Q12HR [place] Last Admin: 12/22/17 10:12 Dose: 10 ml Sodium Chloride (Flush - Normal Saline) 10 ml IVF PRN PRN PRN Reason: Saline Flush Temazepam (Restoril) 15 mg PO HSPRN PRN PRN Reason: Insomnia
[2017-12-22] MEDS: Carbidopa/Levodopa CR 50-200 mg Tablet PO SCH (21:54)
[2017-12-22] MEDS: Ezetimibe 10 MG TAB PO SCH (21:54)
[2017-12-22] MEDS: Simvastatin 40 MG TAB PO SCH (21:55)
[2017-12-23 04:51] LABS: INR-International Normal Ratio 1.1; Prothrombin Time 14.3 SEC (12.0-14.7)
[2017-12-23 04:59] LABS: Hemoglobin 14.1 g/dL (14.0-18.0); Platelet Count 203 thou/uL (130-400)
[2017-12-23] MEDS: Senokot S 8.6-50 MG TAB PO PRN (05:37)
[2017-12-23] MEDS ORDERED: Apixaban 5 MG TAB PO SCH (09:00)
[2017-12-23] MEDS: Cyanocobalamin (Vitamin B-12) 1,000 MCG TAB PO SCH (09:22)
[2017-12-23] MEDS: Levothyroxine Sodium 112 MCG TAB PO SCH (09:22)
[2017-12-23] MEDS: Docusate 100 MG CAP PO SCH (09:23)
[2017-12-23] MEDS: Carbidopa/Levodopa 25-250 mg Tablet PO SCH (09:23)
[2017-12-23] MEDS: Entacapone 200 mg Tablet PO SCH (09:23)
[2017-12-23] MEDS: Famotidine 20 MG TAB PO SCH (09:23)
[2017-12-23] MEDS: Aspirin 81 mg Enteric Coated Tablet PO SCH (09:23)
--- NOTE | 2017-12-23 09:31 | PDOC.PN ---
- Subjective Encounter Start Date: 12/23/17 Encounter Start Time: 07:00 Patient seen and examined for PE. No new complaints. No overnight events - Objective Resuscitation Status: Resuscitation Status FULL:Full Resuscitation MAR Reviewed: Yes Vital Signs & Weight: Vital Signs (12 hours) Temp Pulse Resp BP Pulse Ox 12/23/17 07:32 97.8 F 62 28 H 170/82 H 93 L 12/23/17 04:00 98.7 F 72 18 131/74 92 L Weight Weight 209 lb I&O: 12/22/17 12/23/17 12/24/17 06:59 06:59 06:59 Intake Total 1400 900 Output Total 150 Balance 1250 900 Result Diagrams: 12/23/17 04:35 12/23/17 04:35 EKG Reviewed by me: Yes (nsr) Phys Exam - Physical Examination Constitutional: NAD HEENT: PERRLA, moist MMs, sclera anicteric Neck: no JVD, supple Respiratory: no wheezing, no rales, no rhonchi Cardiovascular: RRR, no significant murmur, no rub Gastrointestinal: soft, non-tender, no distention, positive bowel sounds Musculoskeletal: no edema, pulses present Neurological: non-focal, normal sensation, moves all 4 limbs Lymphatic: no nodes Psychiatric: normal affect, A&O x 3 Skin: no rash, normal turgor Dx/Plan (1) Frequent PVCs Code(s): I49.3 - VENTRICULAR PREMATURE DEPOLARIZATION Status: Acute (2) Weakness generalized Code(s): R53.1 - WEAKNESS Status: Acute (3) Hypertension Code(s): I10 - ESSENTIAL (PRIMARY) HYPERTENSION Status: Chronic (4) Hypothyroidism Code(s): E03.9 - HYPOTHYROIDISM, UNSPECIFIED Status: Chronic (5) Parkinson disease Code(s): G20 - PARKINSON'S DISEASE Status: Chronic - Plan cont current plan of care, plan discussed w/ family * medication reviewed as below * symptomatic treatment. * see discharge summery Review of Systems - Review of Systems Eyes: negative: Pain, Vision Change, Conjunctivae Inflammation, Eyelid Inflammation, Redness, Other ENT: negative: Ear Pain, Ear Discharge, Nose Pain, Nose Discharge, Nose Congestion, Mouth Pain, Mouth Swelling, Throat Pain, Throat Swelling, Other Respiratory: negative: Cough, Dry, Shortness of Breath, Hemoptysis, SOB with Excertion, Pleuritic Pain, Sputum, Wheezing Cardiovascular: negative: chest pain, palpitations, orthopnea, paroxysmal nocturnal dyspnea, edema, light headedness, other Gastrointestinal: negative: Nausea, Vomiting, Abdominal Pain, Diarrhea, Constipation, Melena, Hematochezia, Other Genitourinary: negative: Dysuria, Frequency, Incontinence, Hematuria, Retention , Other Musculoskeletal: negative: Neck Pain, Shoulder Pain, Arm Pain, Back Pain, Hand Pain, Leg Pain, Foot Pain, Other Skin: negative: Rash, Lesions, Christian, Bruising, Other - Medications/Allergies Allergies/Adverse Reactions: Allergies Allergy/AdvReac Type Severity Reaction Status Date / Time No Known Allergies Allergy Verified 12/19/17 22:32 Medications: Current Medications Acetaminophen (Tylenol) 650 mg PO Q4H PRN PRN Reason: Headache/Fever or Pain Hydrocodone Bitart/Acetaminophen ([place] 5/325) 1 tab PO Q4H PRN PRN Reason: Moderate Pain (4-6) Al Hydroxide/Mg Hydroxide (Maalox) 15 ml PO Q4H PRN PRN Reason: Heartburn or Indigestion Apixaban (Eliquis) 10 mg PO BID [facility] Last Admin: 12/23/17 09:29 Dose: 10 mg Artificial Tears (Tears Naturale) 0 drop EA EYE PRN PRN PRN Reason: Dry Eyes Aspirin (Ecotrin) 81 mg PO DAILY [facility] Last Admin: 12/23/17 09:23 Dose: 81 mg Carbidopa/Levodopa (Sinemet 25-250) 2 tab PO QID [facility] Last Admin: 12/23/17 09:23 Dose: 2 tab Carbidopa/Levodopa (Sinemet Cr 50/200) 1 tab PO HS [facility] Last Admin: 12/22/17 21:54 Dose: 1 tab Cholecalciferol (Vitamin D3) 5,000 units PO DAILY [facility] Last Admin: 12/23/17 09:22 Dose: 5,000 units Cyanocobalamin (Vitamin B-12) 1,000 mcg PO Q2D [facility] Last Admin: 12/23/17 09:22 Dose: 1,000 mcg Docusate Sodium (Colace) 100 mg PO BID [facility] Last Admin: 12/23/17 09:23 Dose: 100 mg Ezetimibe (Zetia) 10 mg PO [facility] Last Admin: 06/11/18 21:54 Dose: 10 mg Entacapone (Comtan) 200 mg PO QID [facility] Last Admin: 12/23/17 09:23 Dose: 200 mg Famotidine (Pepcid) 20 mg PO BID [facility] Last Admin: 12/23/17 09:23 Dose: 20 mg Guaifenesin (Robitussin Sf) 200 mg PO Q4H PRN PRN Reason: Cough Hydralazine HCl (Apresoline) 10 mg SLOW IVP Q4H PRN PRN Reason: Systolic BP > 180 Levothyroxine Sodium (Synthroid) 112 mcg PO DAILY [facility] Last Admin: 12/23/17 09:22 Dose: 112 mcg Loperamide HCl (Imodium) 2 mg PO PRN PRN PRN Reason: Diarrhea/Loose Stools Loratadine (Claritin) 10 mg PO DAILYPRN PRN PRN Reason: Sinus Symptoms Magnesium Hydroxide (Milk Of Magnesium) 30 ml PO DAILYPRN PRN PRN Reason: Constipation Last Admin: 12/23/17 05:37 Dose: 30 ml Mineral Oil/White Petrolatum (Eucerin Cream) 0 gm TOP BIDPRN PRN PRN Reason: Dry Skin Nitroglycerin (Nitrostat) 0.4 mg SL Q5MIN PRN PRN Reason: Chest Pain Ondansetron HCl (Zofran Odt) 4 mg PO Q6H PRN PRN Reason: Nausea/Vomiting Ondansetron HCl (Zofran) 4 mg IVP Q6H PRN PRN Reason: Nausea/Vomiting Phenol (Chloraseptic [place] 180 Ml Bot) 0 ml PO PRN PRN PRN Reason: Sore Throat Senna/Docusate Sodium (Senokot S) 2 tab PO HS PRN PRN Reason: Constipation Last Admin: 12/23/17 05:37 Dose: 2 tab Simvastatin (Zocor) 40 mg PO HS [facility] Last Admin: 12/22/17 21:55 Dose: 40 mg Sodium Chloride ([place] Nasal [place] 0.65%) 0 ml EA NARE QIDPRN PRN PRN Reason: Nasal Congestion Sodium Chloride (Flush - Normal Saline) 10 ml IVF Q12HR [facility] Last Admin: 12/23/17 09:30 Dose: Not Given Sodium Chloride (Flush - Normal Saline) 10 ml IVF PRN PRN PRN Reason: Saline Flush Temazepam (Restoril) 15 mg PO HSPRN PRN PRN Reason: Insomnia
--- NOTE | 2017-12-23 10:25 | PDOC.EVN ---
Event Note - Event Note Event Note: pt has parkinson's disease, he is very weak, now he has bilateral PE, pt will need bedside commode given his physical deconditioning, I have seen and examined bedside and recommends necessity for bedside commode for this pt. prescription given.
--- NOTE | 2017-12-23 10:55 | DIS ---
DATE OF ADMISSION: 12/19/2017 DATE OF DISCHARGE: 12/23/2017 PRIMARY CARE PHYSICIAN: Bernadette Portillo M.D. DISCHARGE DISPOSITION: Home. PRIMARY DISCHARGE DIAGNOSES: Bilateral pulmonary embolism, generalized weakness due to problem #1, f requent premature ventricular contractions due to problem #1. SECONDARY DISCHARGE DIAGNOSES: Parkinson's disease, hypothyroidism, hypertension, physical deconditi oning. PRIMARY PROCEDURE/OPERATION: None. RADIOLOGICAL INVESTIGATION: Chest x-ray normal. CT angio showed bilateral pulmonary embolism. Ultr asound negative for any DVT. Echocardiography showed EF 45%-50%. SIGNIFICANT LABORATORY DATA: WBC 7.1, hemoglobin 14.1, platelets 203. INR 1.1. Sodium 139, potassi um 4.2, BUN 21, creatinine 1.07, calcium 8.8. Vitamin B12 588. Vitamin D level 39.4. TSH 3.60. DISCHARGE MEDICATIONS: Eliquis 10 mg p.o. b.i.d. until 12/27/2017, and then 5 mg p.o. b.i. d., aspirin 81 mg p.o. daily, carbidopa/levodopa 25/250 two tablets q.i.d. and Sinemet-CR 50/200 one tablet at bedtime, vitamin D3 5000 units p.o. daily, vitamin B12 1000 mcg every other day, Colace 100 mg p.o. b.i.d., entacapone 200 mg p.o. q.i.d., Vytorin 1 tablet daily, Synthroid 112 mcg p.o. daily, Senokot 2 tablets p.o. at bedtime p.r.n. CONTRAINDICATIONS: None. CODE STATUS: FULL CODE. INPATIENT CONSULTANTS: Cardiology, Dr. Ku, was consulted while in hospital. TEST RESULTS PENDING ON DISCHARGE: None. ALLERGIES: No known drug allergy. DISCHARGE PLAN: Post hospital, the patient will follow up with primary care physician in 1 week. HOSPITAL COURSE: This is an 82-year-old male, who was brought to emergency room for generalized weak ness. The patient was admitted by Dr. Jihan Johnson. Please see her H and P for further details. The patient was having multiple PVCs and appeared to be atrial fibrillation, but he was not having a ny real atrial fibrillation on monitor as well as on EKG. Patient was having generalized weakness. We did a D-dimer and it was elevated and that is why we did a CT angio and that came back positive fo r bilateral pulmonary embolism. We treated him with Lovenox 1 mg per kg while in hospital. The ishan ent and family member agreed to continue on newer anticoagulant therapy with Eliquis. We changed to Eliquis 10 mg p.o. b.i.d. for a total of 7 days and then he will continue 5 mg p.o. b.i.d. Risk and benefit of warfarin, Eliquis, Xarelto discussed during this admission with the patient and family mem salima and they agreed with the continuation of Eliquis therapy. While in hospital, we did PT/OT, but this patient has a significant physical deconditioning from Park inson's disease and patient per family member did not wanted to take him to custodial home or r ehabilitation. The patient wanted to go home with family support. We will await bedside commode and that is why prescription is given for his physical weakness. The patient is seen and examined at bedside today. Plan of care discussed with the patient's at bedside. All new medication prescriptions sent to his pharmacy. The patient is medically stable for discharge today.
[2017-12-23 11:37] VITALS: TEMP 98.8
[2017-12-23 11:49] VITALS: BP 154/75
== END 2017-12-23 11:50 | disposition home or self-care (01) | DRG 176 ==
LOC: SCSER 16:20 → 2SE 17:44
PROVIDERS: ADMIT Internal Medicine; ATTEND Internal Medicine
DX: I26.99 Other pulmonary embolism without acute cor pulmonale (principal); G45.9 Transient cerebral ischemic attack, unspecified; G20 Parkinson's disease; E66.9 Obesity, unspecified; Z68.28 Body mass index [BMI] 28.0-28.9, adult; Z79.82 Long term (current) use of aspirin; Z79.02 Long term (current) use of antithrombotics/antiplatelets; Z79.899 Other long term (current) drug therapy; I49.3 Ventricular premature depolarization; E03.9 Hypothyroidism, unspecified; I10 Essential (primary) hypertension; R53.1 Weakness
CPT/HCPCS: 36415; 71045; 71275; 80048; 80053; 82306; 82553; 82565; 82607; 83690; 83880; 84443; 84484; 85014; 85018; 85025; 85049; 85379; 85610; 85730; 90471; 90670; 93005; 93306; 93970; 94760; A4216; G0009; G8978-GP-CM; G8979-GP-CK; J1650